=== PATIENT | female | born 1995 | race Caucasian/White ===

== ENCOUNTER 2022-01-28 17:16 | Emergency (ER) | payer SELFPAY ==
[2022-01-28 17:56] VITALS: PULSE 135; O2SAT 97
--- NOTE | 2022-01-28 18:05 | PC.NURSE ---
pt got off the ems stretcher and started to walk out of the ed to have a cigarette, police with the pt. this rn instructed the police to please escort the pt to bed 20 when she is done, pt never comes back in
== END 2022-01-28 18:21 | disposition left against medical advice (07) ==
PROVIDERS: Emergency Provider Emergency Medicine
DX: F11.90 Opioid use, unspecified, uncomplicated (principal); T76.21XA Adult sexual abuse, suspected, initial encounter; X58.XXXA Exposure to other specified factors, initial encounter